=== PATIENT | female | born 1965 | race Caucasian/White ===

== ENCOUNTER 2018-05-12 15:56 | Emergency (ER) | payer MEDICAID ==
[~2018-05-12] VITALS: Ht 162.6 cm; Wt 65.9 kg
[~2018-05-12 15:56] MED LIST: MAXALT5 MG; NEXIUM40 MG; NORVASC10 MG PO; TENORMIN50 MG PO; TOPROL XL25 MG PO; VISTARIL25 MG
[2018-05-12 16:02] VITALS: Ht 162.6 cm; Wt 65.9 kg
[2018-05-12] MEDS ORDERED: VIBRAMYCIN 100100 MG PO (17:32)
[2018-05-12] MEDS ORDERED: VOLTAREN75 MG PO (17:32)
[2018-05-12 18:02] VITALS: BP 101/64
== END 2018-05-12 18:03 | disposition home or self-care (01) ==
LOC: D.ER 15:56
DX: L03.113 Cellulitis of right upper limb (principal); I10 Essential (primary) hypertension; F17.200 Nicotine dependence, unspecified, uncomplicated

== ENCOUNTER 2019-08-27 17:37 | Emergency (ER) | payer MEDICAID ==
[~2019-08-27] VITALS: Ht 162.6 cm; Wt 77.3 kg
[~2019-08-27 17:37] MED LIST changes: +VIBRAMYCIN 100100 MG PO; +VOLTAREN75 MG PO
[2019-08-27 17:46] VITALS: Ht 162.6 cm; Wt 77.3 kg
[2019-08-27] MEDS ORDERED: ELAVIL25 MG PO (19:20)
[2019-08-27] MEDS ORDERED: CYMBALTA60 MG PO (19:20)
[2019-08-27] MEDS ORDERED: PREDNISONE20 MG PO (19:22)
[2019-08-27 19:55] VITALS: BP 112/70
== END 2019-08-27 19:55 | disposition home or self-care (01) ==
LOC: D.ER 17:37
DX: L29.9 Pruritus, unspecified (principal); F41.8 Other specified anxiety disorders; F32.9 Major depressive disorder, single episode, unspecified; I10 Essential (primary) hypertension; Z72.0 Tobacco use; J45.909 Unspecified asthma, uncomplicated

== ENCOUNTER → 2019-08-30 13:43 | Outpatient (CLI) | payer MEDICAID ==
[2019-08-27 17:46] VITALS: BMI 29.2
[~2019-08-30 13:43] MED LIST changes: +CYMBALTA60 MG PO; +ELAVIL25 MG PO; +PREDNISONE20 MG PO
--- NOTE | 2019-09-06 11:25 | EC ---
PATIENT:SONI ANGEL DATE OF SERVICE: 08/30/19 SEX: F MEDICAL RECORD: [id number] DATE OF : [birth year] LOCATION:[facility] AGE OF PATIENT: 53 ADMISSION DATE: 08/30/19 REFERRING PHYSICIAN: INTERPRETING PHYSICIAN: SALEEM BURGOS MD ECHOCARDIOGRAM REPORT ECHO CHARGES 4 ECHO COMPLETE Date: 08/30/19 CLINICAL DIAGNOSIS: HTN/MURMUR/PALPS ECHOCARDIOGRAPHIC MEASUREMENTS (adult normal given) AC root (d.<3.7cm) 2.9 cm LV Septum d (<1.2 cm> 1.4 cm Valve Excursion 1.4 cm LV Septum (systole) 1.6 cm Left Atria (s.<4.0cm> 2.7 cm LVPW d(<1.2cm) 1.5 cm RV (d.<2.3cm) 3.4 cm LVPW (sytole) 1.6 cm LV diastole(<5.6CM) 3.7 cm MV E-F(>70mm/sec) cm LV systole 2.3 cm LVOT Diameter 1.7 cm MV exc.(>10mm) 1.4 cm Est.ejection fraction (50-75%) % DOPPLER: LVIT cm/sec A 65.0 cm/sec E 61.0 cm/sec LA cm/sec RVSP 16 mmHg LVOT 76 cm/sec AOP1/2T m/s Asc. Ao 127 cm/sec RVOT 59 cm/sec RA cm/sec PA 83 cm/sec AV Gradient Peak 6.44 mmHg AV Mean 3.26 mmHg AV Area 1.4 cm MV Gradient Peak 2.95 mmHg MV Mean 1.01 mmHg MV Area cm COMMENTS: Site Controller: 2 [employer] Manager: 3 Dr. Busby TAPE# PACS Pericardial Effusion N DATE OF SERVICE: Adequate 2D, color flow, spectral Doppler, and M-mode. Borderline LVH. LV internal dimension is normal. Wall motion is normal. EF is greater than or equal to 55%. Aortic valve is tricuspid. No evidence of stenosis by Doppler interrogation. Left atrium is normal. Mitral valve shows no prolapse. Trace MR. Right-sided chambers grossly normal. Trace TR. TRANSINT:[id number] Voice Confirmation ID: [id number] DOCUMENT ID: [id number] ECHOCARDIOGRAM REPORT [id number] COOK,SONI L SALEEM BURGOS MD at 1125 CC: [id number] DICTATION DATE: 09/04/19 1005 DRESS MARKER: 09/04/19 1149 DEP CLI 08/30/19 [facility] [address] [place] [address]
== END | disposition home or self-care (01) ==
LOC: D.HCCECHO 13:30
PROVIDERS: ATTEND Internal Medicine Interventional Cardiology
DX: I10 Essential (primary) hypertension (principal)

== ENCOUNTER 2020-02-06 14:38 | Emergency (ER) | payer MEDICAID ==
[~2020-02-06] VITALS: Ht 162.6 cm; Wt 65.9 kg
[2020-02-06 14:45] VITALS: Ht 162.6 cm; Wt 65.9 kg
[2020-02-06 15:30] VITALS: BP 102/72
== END 2020-02-06 17:22 | disposition home or self-care (01) ==
LOC: D.ER 14:38
DX: F10.129 Alcohol abuse with intoxication, unspecified (principal); Y90.9 Presence of alcohol in blood, level not specified; E86.0 Dehydration; K29.20 Alcoholic gastritis without bleeding; I10 Essential (primary) hypertension; J45.909 Unspecified asthma, uncomplicated; Z72.0 Tobacco use; J02.9 Acute pharyngitis, unspecified; R12 Heartburn